=== PATIENT | male | born 1970 | race Caucasian/White ===

== ENCOUNTER 2019-09-14 16:05 | Emergency (ER) | payer SELFPAY ==
[2019-09-14 16:36] VITALS: BP 126/83; O2SAT 98
--- NOTE | 2019-09-14 17:57 | ED.PDOC ---
History of Present Illness - General Chief Complaint: General Stated Complaint: abcess left arm, weakness Time Seen by Provider: 09/14/19 16:22 Source: patient Exam Limitations: no limitations - History of Present Illness Initial Comments: Patient is a 48-year-old male presented emergency room secondary to his issues. The patient has a healing abscess to the left axilla. He has been on antibiotics for the last 7 days and has approached correction, actually 2 prescriptions to get picked up later today to continue treatment for it. He reports they are Augmentin and Bactrim. No extending erythema. He reports it has shrunk significantly. He has been feeling poorly in general as well. He reports feeling tired and fatigued and generally weak. He did just get out of the psychiatric unit multiple days ago. He is back on his routine psychiatric medications. The patient reports that he would like to be tested for all STDs as he has had a history of high risk sexual behavior in the past. I informed him out of the emergency room we do not do that he will need to contact the public health department. He is not having any symptoms of any STDs. Timing/Duration: 1 week Severity: mild Improving Factors: nothing Worsening Factors: nothing Associated Symptoms: malaise Allergies/Adverse Reactions: Allergies NO KNOWN ALLERGY Allergy (Verified 09/14/19 16:36) Home Medications: Ambulatory Orders Amoxicillin & Pot Clavulanate [Augmentin Tab] 875 mg PO BID 09/14/19 Atorvastatin Calcium [Lipitor] 20 mg PO DAILY 09/14/19 Carbamazepine [Tegretol-Xr] 400 mg PO BID 09/14/19 DULoxetine HCL [Cymbalta] 30 mg PO TID 09/14/19 Finasteride [Proscar] 5 mg PO DAILY 09/14/19 Gabapentin [Neurontin] 400 mg PO TID 09/14/19 Tamsulosin HCl [Flomax] 0.4 mg PO DAILY 09/14/19 Ziprasidone HCl [Geodon] 40 mg PO BID 09/14/19 Review of Systems - Review of Systems Constitutional: States: malaise EENTM: States: no symptoms reported Respiratory: States: no symptoms reported Cardiology: States: no symptoms reported Gastrointestinal/Abdominal: States: no symptoms reported Genitourinary: States: no symptoms reported Musculoskeletal: States: no symptoms reported Skin: States: see HPI Neurological: States: no symptoms reported Endocrine: States: no symptoms reported All other Systems: No Change from Baseline Past Medical History (General) - Patient Medical History Hx Seizures: Yes - drug enduced Hx Stroke: Yes Hx Dementia: No Hx Asthma: No Hx of COPD: No Hx Cardiac Disorders: No Hx Congestive Heart Failure: No Hx Pacemaker: No Hx Hypertension: No Hx Thyroid Disease: No Hx Diabetes: No Hx Gastroesophageal Reflux: No Hx Renal Disease: No Hx of HIV: No Hx Hepatitis C: No Surgical History: cholecystectomy - Vaccination History Hx Influenza Vaccination: No Hx Pneumococcal Vaccination: No - Social History Hx Tobacco Use: Yes Hx Alcohol Use: Yes Hx Substance Use: Yes Hx Substance Use Treatment: Yes Family Medical History - Family History Mother Family History: Unknown Living Status: Unknown Physical Exam - Physical Exam General Appearance: Alert, Comfortable, No apparent distress Eye Exam: bilateral normal Ears, Nose, Throat: hearing grossly normal, normal pharynx, other - 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 Neck: non-tender, supple Respiratory: lungs clear, normal breath sounds, no respiratory distress, no accessory muscle use Cardiovascular/Chest: normal peripheral pulses, regular rate, rhythm, no edema Peripheral Pulses: radial,right: 2+, radial,left: 2+ Gastrointestinal/Abdominal: non tender, soft Rectal Exam: deferred Back Exam: no CVA tenderness, no vertebral tenderness Extremity: normal range of motion, non-tender, normal inspection, no pedal ed flora, normal capillary refill Neurologic: absorption operator II-XII nml as tested, alert, normal mood/affect, oriented x 3 Skin Exam: normal color - The patient does have some mild scattered psoriasis. Comments: Vital Signs - 24 hr 09/14/19 16:27 Pulse Rate [ 66 Left Radial] Respiratory 22 Rate Blood Pressure 126/83 [Left Arm] O2 Sat by Pulse 98 Oximetry Laboratory Tests 09/14/19 09/14/19 09/14/19 16:58 16:58 17:20 WBC 7.0 RBC 4.62 L Hgb 14.1 Hct 41.3 L MCV 89.4 MCH 30.5 MCHC 34.2 RDW 13.8 Plt Count 262 MPV 8.5 Absolute Neuts (auto) 4.20 Absolute Lymphs (auto) 2.10 Absolute Monos (auto) 0.60 Absolute Eos (auto) 0.20 Absolute Basos (auto) 0.00 Neutrophils % 59.5 Lymphocytes % 29.5 Monocytes % 8.2 Eosinophils % 2.3 Basophils % 0.5 Sodium 139 Potassium 3.9 Chloride 106 Carbon Dioxide 28 Anion Gap 8.9 L BUN 14 Creatinine 0.76 BUN/Creatinine Ratio 18.4 Random Glucose 92 Serum Osmolality 277.7 Calcium 8.6 Magnesium 2.3 Total Bilirubin 0.4 AST 37 ALT 56 Alkaline Phosphatase 75 Creatine Kinase 100 CK-MB (CK-2) 3.8 CK-MB (CK-2) % Not Reportable Troponin I < 0.02 B-Natriuretic Peptide 16.5 Serum Total Protein 7.6 Albumin 4.2 Globulin 3.4 Albumin/Globulin Ratio 1.2 Urine Color Urine Appearance Urine pH Ur Specific [place] Urine Protein Urine Glucose (UA) Urine Ketones Urine Blood Urine Nitrite Urine Bilirubin Urine Urobilinogen Ur Leukocyte Esterase Urine RBC Urine WBC Ur Epithelial Cells Urine Bacteria Urine Mucus Urine Opiates Screen Negative Urine Barbiturates Negative Ur Phencyclidine Scrn Negative U Amphetamin/Meth Scrn Negative U Benzodiazepines Scrn Negative U Cocaine Metab Screen Negative U Cannabinoids Screen Negative 09/14/19 17:20 WBC RBC Hgb Hct MCV MCH MCHC RDW Plt Count MPV Absolute Neuts (auto) Absolute Lymphs (auto) Absolute Monos (auto) Absolute Eos (auto) Absolute Basos (auto) Neutrophils % Lymphocytes % Monocytes % Eosinophils % Basophils % Sodium Potassium Chloride Carbon Dioxide Anion Gap BUN Creatinine BUN/Creatinine Ratio Random Glucose Serum Osmolality Calcium Magnesium Total Bilirubin AST ALT Alkaline Phosphatase Creatine Kinase CK-MB (CK-2) CK-MB (CK-2) % Troponin I B-Natriuretic Peptide Serum Total Protein Albumin Globulin Albumin/Globulin Ratio Urine Color Yellow Urine Appearance Clear Urine pH 5.5 Ur Specific [place] >= 1.030 Urine Protein Negative Urine Glucose (UA) Negative Urine Ketones Negative Urine Blood Negative Urine Nitrite Negative Urine Bilirubin Negative Urine Urobilinogen 0.2 Ur Leukocyte Esterase Negative Urine RBC 0-1 Urine WBC 0-1 Ur Epithelial Cells 0-1 Urine Bacteria Rare Urine Mucus Trace Urine Opiates Screen Urine Barbiturates Ur Phencyclidine Scrn U Amphetamin/Meth Scrn U Benzodiazepines Scrn U Cocaine Metab Screen U Cannabinoids Screen Progress - Progress Progress: 09/14/19 17:57 The patient is a 48-year-old male presented emergency room secondary to fatigue. The patient has a healing abscess to his left axilla. He is to pickup driver his antibiotics and take them as prescribed. Laboratory work is reassuring. He does have some mild dehydration and needs to pickup driver his fluid intake. The patient needs to follow-up with [facility] department for comprehensive STD testing. He is currently asymptomatic from the standpoint. ER warnings are given. nereida sarkar [id number] - EKG/XRAY/CT CT Ordered: No Departure - Departure Clinical Impression: Dehydration Fatigue Qualifiers: Fatigue type: unspecified Qualified Code(s): R53.83 - Other fatigue Skin abscess Qualifiers: Site of cutaneous abscess: extremity Site of cutaneous abscess of extremity: upper extremity Laterality: left Qualified Code(s): L02.414 - Cutaneous abscess of left upper limb Disposition: Discharge to Home or Self Care Condition: Fair Departure Forms: ED Discharge - Pt. Copy, Patient Portal Self Enrollment Diet: regular diet Activity: increase activity as tolerated Home Medications: Ambulatory Orders Amoxicillin & Pot Clavulanate [Augmentin Tab] 875 mg PO BID 09/14/19 Atorvastatin Calcium [Lipitor] 20 mg PO DAILY 09/14/19 Carbamazepine [Tegretol-Xr] 400 mg PO BID 09/14/19 DULoxetine HCL [Cymbalta] 30 mg PO TID 09/14/19 Finasteride [Proscar] 5 mg PO DAILY 09/14/19 Gabapentin [Neurontin] 400 mg PO TID 09/14/19 Tamsulosin HCl [Flomax] 0.4 mg PO DAILY 09/14/19 Ziprasidone HCl [Geodon] 40 mg PO BID 09/14/19 Additional Instructions: The patient is a 48-year-old male presented emergency room secondary to fatigue. The patient has a healing abscess to his left axilla. He is to pickup driver his antibiotics and take them as prescribed. Laboratory work is reassuring. He does have some mild dehydration and needs to pickup driver his fluid intake. The patient needs to follow-up with [facility] department for comprehensive STD testing. He is currently asymptomatic from the standpoint. ER warnings are given.
== END 2019-09-14 18:06 | disposition home or self-care (01) ==
LOC: ER 16:05
DX: E86.0 Dehydration (principal); L02.414 Cutaneous abscess of left upper limb; R53.83 Other fatigue; F17.200 Nicotine dependence, unspecified, uncomplicated; Z86.73 Personal history of transient ischemic attack (TIA), and cerebral infarction without residual deficits

== ENCOUNTER 2020-01-20 16:12 | Emergency (ER) | payer OTHER ==
--- NOTE | 2020-01-20 16:38 | ED.PDOC ---
History of Present Illness - General Chief Complaint: Skin/Abrasion/Tear Time Seen by Provider: 01/20/20 16:14 Source: patient, RN notes reviewed, Vital Signs reviewed - History of Present Illness Initial Comments: 49 yo M comes in with dog with c/c of pain on arms and chest. States he had an abscess drained yesterday in [place]. Was put on bactrim, but only took one dose. Also hx of parkinsons and HIV exposure. States he has felt weak overall for the past several months. no fever. Allergies/Adverse Reactions: Allergies NO KNOWN ALLERGY Allergy (Verified 01/20/20 17:31) Home Medications: Ambulatory Orders Atorvastatin Calcium [Lipitor] 20 mg PO DAILY 09/14/19 Carbamazepine [Tegretol-Xr] 400 mg PO BID 09/14/19 DULoxetine HCL [Cymbalta] 30 mg PO TID 09/14/19 Finasteride [Proscar] 5 mg PO DAILY 09/14/19 Gabapentin [Neurontin] 400 mg PO TID 09/14/19 Tamsulosin HCl [Flomax] 0.4 mg PO DAILY 09/14/19 Ziprasidone HCl [Geodon] 40 mg PO BID 09/14/19 Clindamycin HCl [Cleocin] 300 mg PO Q6H 10 Days #40 capsule 01/20/20 Review of Systems - Review of Systems Constitutional: States: malaise. Denies: chills, fever EENTM: Denies: blurred vision, throat pain, throat swelling Respiratory: Denies: cough, short of breath Cardiology: Denies: chest pain, palpitations Gastrointestinal/Abdominal: Denies: abdominal pain, diarrhea, nausea, vomiting Genitourinary: Denies: discharge, frequency, hematuria Musculoskeletal: Denies: back pain, joint pain, joint swelling, muscle pain Skin: States: see HPI, rash Neurological: States: pre-existing deficit - bells palsy chronic . Denies: headache, numbness, paresthesia, tingling, tremors, weakness Endocrine: Denies: increased urine, unexplained weight gain, unexplained weight loss Hematologic/Lymphatic: Denies: blood clots, easy bleeding, easy bruising Past Medical History (General) - Patient Medical History Hx Seizures: Yes - drug enduced Hx Stroke: Yes Hx Dementia: No Hx Asthma: No Hx of COPD: No Hx Cardiac Disorders: No Hx Congestive Heart Failure: No Hx Pacemaker: No Hx Hypertension: No Hx Thyroid Disease: No Hx Diabetes: No Hx Gastroesophageal Reflux: No Hx Renal Disease: No Hx of HIV: No Hx Hepatitis C: No - Vaccination History Hx Influenza Vaccination: No Hx Pneumococcal Vaccination: No - Social History Hx Tobacco Use: Yes Hx Alcohol Use: Yes Hx Substance Use: Yes Hx Substance Use Treatment: Yes Family Medical History - Family History Mother Family History: Unknown Living Status: Unknown Physical Exam - Physical Exam General Appearance: Alert, Comfortable, No apparent distress, Well Developed, Well Groomed, Well Hydrated, Well Nourished Eyes, Ears, Nose, Throat Exam: PERRL/EOMI, normal ENT inspection, TMs normal Neck: non-tender, full range of motion, supple, normal inspection Cardiovascular/Chest: normal peripheral pulses, regular rate, rhythm, no edema, no gallop, no JVD, no murmur Respiratory: chest non-tender, lungs clear, normal breath sounds, no respiratory distress, no accessory muscle use Gastrointestinal/Abdominal: normal bowel sounds, non tender, soft, no organomegaly, no pulsatile mass Back Exam: normal inspection, no CVA tenderness Extremity: normal range of motion, non-tender, normal inspection, no pedal edema, no calf tenderness, normal capillary refill Neurologic: no motor/sensory deficits, alert, normal mood/affect, oriented x 3 Skin Exam: warm/dry, other - 5 cm area of induration, erythema on left chest, no fluctuance or anything drainable noted at this time. Also small indurated, erythematous area on right forearm and left forearm aprx 1 cm in diameter. Progress - Progress Progress: 01/20/20 18:21 due to only receiving one day of antibiotic I do not feel this is failed outpatient therapy at this time. Will give one time does of vancomycin. Will get blood cultures. no chest pain or shortness of breath. no systemic signs currently. Plan on discharging on clindamcyin. The data reviewed when caring for this patient included: nurse notes, prior records, etc. The history and assessments from nurses notes were reviewed and considered, and the patient's home medication list was also reviewed and considered. My assessment and the results of testing completed here in the ED were discussed with the patient/family. All questions were answered, and they express understanding of my assessment and the plan. They have been instructed to return if their symptoms worsen, and have been asked to follow up with their primary care physician to recheck today's presenting complaint. Strict return precautions given. I have reviewed medication, benefits, alternatives and side effects. Patient decided to proceed with medication. Gayle Khan DO #[id number] Departure - Departure Clinical Impression: Abscess Cellulitis Qualifiers: Site of cellulitis: trunk Site of cellulitis of trunk: chest wall Qualified Code(s): L03.313 - Cellulitis of chest wall Disposition: Discharge to Home or Self Care Departure Forms: ED Discharge - Pt. Copy, Patient Portal Self Enrollment Instructions: DI for Abrasion, Skin Abscess, Cellulitis (Skin Infection), Adult (DC) Prescriptions: Clindamycin HCl [Cleocin] 300 mg PO Q6H 10 Days #40 capsule Home Medications: Ambulatory Orders Atorvastatin Calcium [Lipitor] 20 mg PO DAILY 09/14/19 Carbamazepine [Tegretol-Xr] 400 mg PO BID 09/14/19 DULoxetine HCL [Cymbalta] 30 mg PO TID 09/14/19 Finasteride [Proscar] 5 mg PO DAILY 09/14/19 Gabapentin [Neurontin] 400 mg PO TID 09/14/19 Tamsulosin HCl [Flomax] 0.4 mg PO DAILY 09/14/19 Ziprasidone HCl [Geodon] 40 mg PO BID 09/14/19 Clindamycin HCl [Cleocin] 300 mg PO Q6H 10 Days #40 capsule 01/20/20
[2020-01-20] MEDS ORDERED: VANCOMYCIN HCL INJ 1,500 MG in SODIUM CHLORIDE 0.9% 500ML 500 ML IVPB ONE (17:13)
[2020-01-20] MEDS ORDERED: VANCOMYCIN HCL INJ 500 MG VIAL ONE (18:29)
[2020-01-20 19:17] VITALS: BP 130/83; TEMP 97.4; O2SAT 100
== END 2020-01-20 19:23 | disposition home or self-care (01) ==
LOC: ER 16:12
DX: L03.313 Cellulitis of chest wall (principal); L02.91 Cutaneous abscess, unspecified; G51.0 Bell's palsy; G20 Parkinson's disease; Z79.899 Other long term (current) drug therapy; Z86.73 Personal history of transient ischemic attack (TIA), and cerebral infarction without residual deficits; Z87.891 Personal history of nicotine dependence
CPT/HCPCS: 36415; 80053; 85025; 86140; 87040; J3370; J7040

== ENCOUNTER 2020-03-04 01:07 | Emergency (ER) | payer OTHER ==
[2020-03-04] MEDS ORDERED: SODIUM CHLORIDE 0.9% (FLUSH) 10 ML SYG IV PRN (01:29)
--- NOTE | 2020-03-04 02:17 | ED.PDOC ---
History of Present Illness - General Chief Complaint: Behavioral / Psych Stated Complaint: quit taking medication, "Freaked Out" Time Seen by Provider: 03/04/20 01:28 Source: patient, RN notes reviewed, Vital Signs reviewed Exam Limitations: no limitations - History of Present Illness Initial Comments: Patient is a 49-year-old white male who presents due to anxiety and his para noia. Patient has not been taking his psych meds for the last 3 days. Patient feels that he is being watched and stalked by people in this town who want to run them out of town. He states this is because he is [place]. Patient denies hearing voices. Patient denies homicidal or suicidal thoughts. Patient is extremely depressed and anxious and is worried that he might try to do something stupid and hurt himself. Timing/Duration: getting worse, other - 3 days Severity: severe Associated Symptoms: anxiety, impaired concentration Allergies/Adverse Reactions: Allergies Tramadol Allergy (Verified 03/04/20 02:02) Home Medications: Ambulatory Orders Carbamazepine [Tegretol-Xr] 400 mg PO BID 09/14/19 DULoxetine HCL [Cymbalta] 30 mg PO TID 09/14/19 Latuda PO DAILY 03/04/20 Review of Systems - Review of Systems Constitutional: States: no symptoms reported, see HPI. Denies: chills, fever, malaise, weakness EENTM: States: no symptoms reported. Denies: eye pain, blurred vision, double vision Respiratory: States: no symptoms reported. Denies: cough, short of breath, stridor, wheezing Cardiology: States: no symptoms reported. Denies: chest pain, palpitations, syncope Gastrointestinal/Abdominal: States: no symptoms reported. Denies: abdominal pain, nausea, vomiting Genitourinary: States: no symptoms reported. Denies: dysuria, frequency Musculoskeletal: States: no symptoms reported. Denies: back pain, joint pain, neck pain Skin: States: no symptoms reported. Denies: change in color, rash Neurological: States: anxiety, depressed, emotional problems. Denies: headache, numbness, paresthesia, tingling, tremors, weakness Endocrine: States: no symptoms reported. Denies: increased hunger, increased thirst, increased urine Hematologic/Lymphatic: States: no symptoms reported. Denies: blood clots, easy bleeding All other Systems: Reviewed and Negative Past Medical History (General) - Patient Medical History Hx Seizures: No Hx Stroke: No Hx Dementia: No Hx Asthma: No Hx of COPD: No Hx Cardiac Disorders: No Hx Congestive Heart Failure: No Hx Pacemaker: No Hx Hypertension: No Hx Thyroid Disease: No Hx Diabetes: No Hx Gastroesophageal Reflux: No Hx Renal Disease: No Hx Cancer: No Hx of HIV: No Hx Hepatitis C: No Hx MRSA: Yes Hx Other PMH: Yes - depression and anxiety MRSA Source:: Skin Surgical History: cholecystectomy - Vaccination History Hx Tetanus, Diphtheria Vaccination: Yes Hx Influenza Vaccination: No Hx Pneumococcal Vaccination: No - Social History Hx Tobacco Use: No Hx Chewing Tobacco Use: No Hx Alcohol Use: No Hx Substance Use: No Hx Substance Use Treatment: Yes Hx Depression: No Feels Threatened In Home Enviroment: No Feels Threatened In a Relationship: No Hx Physical Abuse: No Hx Emotional Abuse: No Hx Suspected Abuse: No - Female History Patient is a Female of Child Bearing Age (10 -59 yrs old): No - Triage Comment ED Triage Comment: The patient walked from the ambulance to ER bed 3 while carring his service dog. He was alert and oriented times 4 and did appear anxious. He stated that he had not been taking all of his medications for the past 3 days and wanted to be taken to [facility] for further treatment. He denied being suicidal at the time of assessment but stated that he felt that he was getting close to that point. He also had noted pain to his right leg and had noted redness around an old scar that had noted pain upon palpation. He had no other noted compalints at the time of contact. Family Medical History - Family History Mother Family History: Unknown Living Status: Unknown Physical Exam - Physical Exam General Appearance: Agitated, Alert, Anxious, Obvious distress, Unkempt, Well Developed, Well Hydrated, Well Nourished Eyes, Ears, Nose, Throat Exam: PERRL/EOMI, normal ENT inspection, pharynx normal Neck: non-tender, full range of motion, supple Respiratory: chest non-tender, lungs clear, normal breath sounds, no respiratory distress, no accessory muscle use Cardiovascular/Chest: normal peripheral pulses, no edema, no gallop, no JVD, no murmur, tachycardia Peripheral Pulses: radial,right: 2+, radial,left: 2+ Gastrointestinal/Abdominal: normal bowel sounds, non tender, soft Extremities Exam: normal range of motion, tenderness - Left lower lateral extremity with redness consistent with cellulitis. Neurological: alert, field associate II-XII nml as tested, oriented x 3, anxious, depressed affect Appearance: no memory impairment, disheveled - Pt smells of cigarrette smoke. Pt state he doesn't smoke it is from his roommate who smokes. Behavior/Eye Contact/Speech: cooperative, normal speech, avoids eye contact Thoughts/Hallucinations: no apparent hallucination, paranoid, persecution Skin Exam: normal color, warm/dry Progress - Progress Progress: Differential diagnosis: Suicidal ideation, depression, methamphetamine abuse, acute psychosis among others. 03/04/20 03:42 Patient's labs are relatively unremarkable except for his urine drug screen showing methamphetamine usage. We are awaiting [facility] to evaluate the patient for placement and I have discussed this plan with the patient he voices understanding and agreement with plan of care at this point time 03/04/20 04:15 Patient has spoken with [facility] and has outpatient counseling appointment scheduled for next week. Patient contracts for safety. Plan discharge home with follow- up with [facility]. I discussed this plan of care with the patient he voices understanding and agreement. Attila Jenkins M.D. #[id number] - Results/Orders Results/Orders: EKG performed on 04 March 2020 at 0146 hrs.: Normal sinus rhythm at 95 bpm, normal axis deviation, no ST or T wave changes concerning for ischemia, normal EKG. No comparison EKG available at this time. 03/04/20 01:29 Sodium Chloride 0.9% (Flush) [Saline Flush Syringe] 10 ml IV PRN PRN 03/04/20 01:30 EKG STAT Laboratory Results - last 24 hr 03/04/20 03/04/20 03/04/20 01:45 01:45 01:45 WBC 9.2 RBC 4.45 L Hgb 13.3 L Hct 38.2 L MCV 85.7 MCH 29.9 MCHC 34.9 RDW 13.4 Plt Count 309 MPV 7.4 Absolute Neuts (auto) 6.50 Absolute Lymphs (auto) 1.70 Absolute Monos (auto) 0.80 Absolute Eos (auto) 0.10 Absolute Basos (auto) 0.00 Neutrophils % 70.9 Lymphocytes % 18.7 L Monocytes % 9.2 H Eosinophils % 0.8 L Basophils % 0.4 PT 10.0 INR 1.01 PTT (SP) 25.0 Sodium 139 Potassium 3.6 Chloride 102 Carbon Dioxide 27 Anion Gap 13.6 BUN 10 Creatinine 0.93 BUN/Creatinine Ratio 10.8 Random Glucose 101 Serum Osmolality 276.7 Calcium 8.7 Total Bilirubin 0.5 AST 19 ALT 23 Alkaline Phosphatase 81 Creatine Kinase 122 CK-MB (CK-2) 3.9 CK-MB (CK-2) % Not Reportable Troponin I < 0.02 Serum Total Protein 8.0 Albumin 4.1 Globulin 3.9 H Albumin/Globulin Ratio 1.1 Urine Color Urine Appearance Urine pH Ur Specific [place] Urine Protein Urine Glucose (UA) Urine Ketones Urine Blood Urine Nitrite Urine Bilirubin Urine Urobilinogen Ur Leukocyte Esterase Urine RBC Urine WBC Ur Epithelial Cells Urine Bacteria Salicylates < 4.0 Urine Opiates Screen Acetaminophen < 10.0 L Urine Barbiturates Ur Phencyclidine Scrn U Amphetamin/Meth Scrn U Benzodiazepines Scrn U Cocaine Metab Screen U Cannabinoids Screen Ethyl Alcohol 03/04/20 03/04/20 03/04/20 01:45 01:50 01:50 WBC RBC Hgb Hct MCV MCH MCHC RDW Plt Count MPV Absolute Neuts (auto) Absolute Lymphs (auto) Absolute Monos (auto) Absolute Eos (auto) Absolute Basos (auto) Neutrophils % Lymphocytes % Monocytes % Eosinophils % Basophils % PT INR PTT (SP) Sodium Potassium Chloride Carbon Dioxide Anion Gap BUN Creatinine BUN/Creatinine Ratio Random Glucose Serum Osmolality Calcium Total Bilirubin AST ALT Alkaline Phosphatase Creatine Kinase CK-MB (CK-2) CK-MB (CK-2) % Troponin I Serum Total Protein Albumin Globulin Albumin/Globulin Ratio Urine Color Yellow Urine Appearance Clear Urine pH 6.0 Ur Specific [place] 1.025 Urine Protein Negative Urine Glucose (UA) Negative Urine Ketones Negative Urine Blood Negative Urine Nitrite Negative Urine Bilirubin Negative Urine Urobilinogen 0.2 Ur Leukocyte Esterase Negative Urine RBC 0 Urine WBC 0-1 Ur Epithelial Cells 0 Urine Bacteria 0 Salicylates Urine Opiates Screen Negative Acetaminophen Urine Barbiturates Negative Ur Phencyclidine Scrn Negative U Amphetamin/Meth Scrn Positive H U Benzodiazepines Scrn Negative U Cocaine Metab Screen Negative U Cannabinoids Screen Negative Ethyl Alcohol < 5.10 Vital Signs 03/04/20 03/04/20 03/04/20 01:19 02:07 03:00 Temperature 97.7 F Pulse Rate [ 118 H 92 H 92 H Pulse Ox] Respiratory 20 18 14 Rate Blood Pressure 135/89 132/84 129/84 [Left Arm] O2 Sat by Pulse 99 96 97 Oximetry 03/04/20 04:00 Temperature Pulse Rate [ 82 Pulse Ox] Respiratory 14 Rate Blood Pressure 142/94 [Left Arm] O2 Sat by Pulse 95 Oximetry - EKG/XRAY/CT CT Ordered: No CT Interpretation Call Back: No Departure - Departure Clinical Impression: Methamphetamine abuse Depression Qualifiers: Depression Type: unspecified Qualified Code(s): F32.9 - Major depressive disorder, single episode, unspecified Time of Disposition: 04:17 Disposition: Discharge to Home or Self Care Condition: Good Departure Forms: ED Discharge - Pt. Copy, Patient Portal Self Enrollment Instructions: DI for Psychosis, Depression, Adult (DC) Diet: resume usual diet Activity: increase activity as tolerated Home Medications: Ambulatory Orders Carbamazepine [Tegretol-Xr] 400 mg PO BID 09/14/19 DULoxetine HCL [Cymbalta] 30 mg PO TID 09/14/19 Latuda PO DAILY 03/04/20
[2020-03-04] MEDS ORDERED: CLINDAMYCIN INJ (VIAL) 600 MG in SODIUM CHLORIDE 0.9% 50ML 50 ML IVPB ONE (02:22)
[2020-03-04 04:05] VITALS: O2SAT 95
[2020-03-04 04:22] VITALS: BP 136/92; TEMP 97.5
== END 2020-03-04 04:21 | disposition home or self-care (01) ==
LOC: ER 01:07
DX: F32.9 Major depressive disorder, single episode, unspecified (principal); F15.10 Other stimulant abuse, uncomplicated; L03.116 Cellulitis of left lower limb; F41.9 Anxiety disorder, unspecified; Z86.14 Personal history of Methicillin resistant Staphylococcus aureus infection; Z79.899 Other long term (current) drug therapy; Z88.5 Allergy status to narcotic agent
CPT/HCPCS: 80053; 80307; 80320; 80329; 81001; 82550; 82553; 84484; 85025; 85610; 85730; 93005; A4216; J3490

== ENCOUNTER 2020-03-04 07:38 | Emergency (ER) | payer OTHER ==
[2020-03-04 07:59] VITALS: BP 142/86; TEMP 98.8; O2SAT 95
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
== END 2020-03-04 08:33 | disposition home or self-care (01) ==
LOC: ER 07:38
DX: R46.89 Other symptoms and signs involving appearance and behavior (principal); F15.10 Other stimulant abuse, uncomplicated; F20.0 Paranoid schizophrenia; Z79.899 Other long term (current) drug therapy; Z88.5 Allergy status to narcotic agent

== ENCOUNTER 2020-04-30 16:56 | Emergency (ER) | payer OTHER ==
--- NOTE | 2020-04-30 17:22 | ED.PDOC ---
History of Present Illness - General Chief Complaint: GI Problem Stated Complaint: right side "liver" pain Time Seen by Provider: 04/30/20 17:15 Source: patient, RN notes reviewed, Vital Signs reviewed, old records Exam Limitations: no limitations - History of Present Illness Initial Comments: Pt reports that he wa recently exposed to Hepatitis B. States for the last 3 weeks has had achy RUQ pain and nausea. Denies vomiting, diarrhea, fever, chills or blood in stool. States he tested + for COVID 6 weeks ago and symptoms have resolved. Was seen in clinic 5 days ago and had hepatitis panel performed that was negative, but he is not sure if that is accurate. Allergies/Adverse Reactions: Allergies Tramadol Allergy (Verified 04/30/20 17:20) Home Medications: Ambulatory Orders Carbamazepine [Tegretol-Xr] 400 mg PO BID 09/14/19 DULoxetine HCL [Cymbalta] 30 mg PO TID 09/14/19 Latuda PO DAILY 03/04/20 Review of Systems - Review of Systems Constitutional: Denies: chills, fever, weakness EENTM: Denies: blurred vision, nose congestion, throat pain Respiratory: Denies: cough, short of breath Cardiology: Denies: chest pain, palpitations, syncope Gastrointestinal/Abdominal: States: nausea. Denies: diarrhea, vomiting Musculoskeletal: Denies: back pain, neck pain Skin: Denies: rash Endocrine: States: no symptoms reported All other Systems: Reviewed and Negative Past Medical History (General) - Patient Medical History Hx Seizures: No Hx Stroke: No Hx Dementia: No Hx Asthma: No Hx of COPD: No Hx Cardiac Disorders: No Hx Congestive Heart Failure: No Hx Pacemaker: No Hx Hypertension: No Hx Thyroid Disease: No Hx Diabetes: No Hx Gastroesophageal Reflux: No Hx Renal Disease: No Hx Cancer: No Hx of HIV: No Hx Hepatitis C: No Hx MRSA: Yes MRSA Source:: Skin - Vaccination History Hx Tetanus, Diphtheria Vaccination: Yes Hx Influenza Vaccination: No Hx Pneumococcal Vaccination: No - Social History Hx Tobacco Use: No Hx Chewing Tobacco Use: No Hx Alcohol Use: No Hx Substance Use: No Hx Substance Use Treatment: Yes Hx Depression: No Hx Physical Abuse: No Hx Emotional Abuse: No Hx Suspected Abuse: No Family Medical History - Family History Mother Family History: Unknown Living Status: Unknown Physical Exam - Physical Exam General Appearance: Alert, Comfortable, No apparent distress Eye Exam: bilateral other - no scleral icterus Ears, Nose, Throat: normal pharynx Neck: non-tender, full range of motion, supple Respiratory: chest non-tender, lungs clear, normal breath sounds, no respiratory distress Cardiovascular/Chest: regular rate, rhythm, no edema, no murmur Gastrointestinal/Abdominal: soft, other - Mild TTP RUQ. Negative James's sign. No guarding or rigidity Back Exam: no CVA tenderness, no vertebral tenderness Extremity: non-tender, normal inspection, no pedal edema Neurologic: no motor/sensory deficits, alert, normal mood/affect Skin Exam: normal color, other - no jaundice Progress - Progress Progress: 04/30/20 17:24 Pt presents with 3 week h/o achy RUQ pain and nausea. No fever or vomiting. No sign of acute abdomen on exam. Will get labs. I have d/w pt that he will need outpatient abdominal US with PCP for continued evaluation. 04/30/20 18:41 I have d/w pt results. He feels comfortable going home and will f/u with PCP for final results and outpatient US RUQ for further evaluation. SRP given. - Results/Orders Results/Orders: 04/30/20 17:28 HEPATITIS B SURFACE ANTIBODY Stat HEPATITIS C ANTIBODY PANEL Stat Laboratory Results - last 24 hr 04/30/20 04/30/20 04/30/20 17:27 17:27 17:27 WBC 6.9 RBC 4.63 L Hgb 13.4 L Hct 39.5 L MCV 85.2 MCH 29.0 MCHC 34.0 RDW 13.6 Plt Count 266 MPV 7.3 L Absolute Neuts (auto) 4.60 Absolute Lymphs (auto) 1.40 Absolute Monos (auto) 0.60 Absolute Eos (auto) 0.10 Absolute Basos (auto) 0.10 Neutrophils % 67.7 Lymphocytes % 20.5 Monocytes % 9.3 H Eosinophils % 1.7 Basophils % 0.8 PT 10.6 INR 1.07 PTT (SP) 24.4 Sodium 138 Potassium 3.6 Chloride 104 Carbon Dioxide 24 Anion Gap 13.6 BUN 14 Creatinine 0.92 BUN/Creatinine Ratio 15.2 Random Glucose 102 Serum Osmolality 276.3 Calcium 9.1 Total Bilirubin 1.0 AST 28 ALT 32 Alkaline Phosphatase 68 Serum Total Protein 7.6 Albumin 4.2 Globulin 3.4 Albumin/Globulin Ratio 1.2 Lipase 36 Urine Color Urine Appearance Urine pH Ur Specific [place] Urine Protein Urine Glucose (UA) Urine Ketones Urine Blood Urine Nitrite Urine Bilirubin Urine Urobilinogen Ur Leukocyte Esterase Urine RBC Urine WBC Ur Epithelial Cells Urine Bacteria Urine Mucus 04/30/20 18:15 WBC RBC Hgb Hct MCV MCH MCHC RDW Plt Count MPV Absolute Neuts (auto) Absolute Lymphs (auto) Absolute Monos (auto) Absolute Eos (auto) Absolute Basos (auto) Neutrophils % Lymphocytes % Monocytes % Eosinophils % Basophils % PT INR PTT (SP) Sodium Potassium Chloride Carbon Dioxide Anion Gap BUN Creatinine BUN/Creatinine Ratio Random Glucose Serum Osmolality Calcium Total Bilirubin AST ALT Alkaline Phosphatase Serum Total Protein Albumin Globulin Albumin/Globulin Ratio Lipase Urine Color Yellow Urine Appearance Clear Urine pH 6.0 Ur Specific [place] >= 1.030 Urine Protein Negative Urine Glucose (UA) Negative Urine Ketones 40 H Urine Blood Negative Urine Nitrite Negative Urine Bilirubin Small H Urine Urobilinogen 1.0 Ur Leukocyte Esterase Negative Urine RBC 0 Urine WBC 1-3 Ur Epithelial Cells 1-3 Urine Bacteria 0 Urine Mucus Moderate Departure - Departure Clinical Impression: RUQ abdominal pain Time of Disposition: 18:35 Disposition: Discharge to Home or Self Care Condition: Good Departure Forms: ED Discharge - Pt. Copy, Patient Portal Self Enrollment Instructions: Severe Abdominal Pain, Adult (DC) Diet: resume usual diet Activity: increase activity as tolerated Referrals: Yvan Qureshi MD [Primary Care Provider] - 1-2 Days Home Medications: Ambulatory Orders Carbamazepine [Tegretol-Xr] 400 mg PO BID 09/14/19 DULoxetine HCL [Cymbalta] 30 mg PO TID 09/14/19 Latuda PO DAILY 03/04/20
[2020-04-30 18:52] VITALS: BP 148/82; TEMP 98.5; O2SAT 96
== END 2020-04-30 18:50 | disposition home or self-care (01) ==
LOC: ER 16:56
DX: R10.11 Right upper quadrant pain (principal); R11.0 Nausea; Z86.16 Personal history of COVID-19; Z20.5 Contact with and (suspected) exposure to viral hepatitis; Z88.5 Allergy status to narcotic agent

== ENCOUNTER 2020-05-04 15:42 | Emergency (ER) | payer OTHER ==
[2020-05-04] MEDS ORDERED: LORazepam 0.5 MG TAB PO ONE (16:09)
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
[2020-05-04 16:38] VITALS: BP 119/77; TEMP 97.5; O2SAT 99
== END 2020-05-04 16:48 | disposition home or self-care (01) ==
LOC: ER 15:42
DX: F41.0 Panic disorder [episodic paroxysmal anxiety] (principal); Z63.4 Disappearance and death of family member; Z88.5 Allergy status to narcotic agent; Z79.899 Other long term (current) drug therapy

== ENCOUNTER 2020-05-04 17:09 | Emergency (ER) | payer OTHER ==
--- NOTE | 2020-05-04 17:56 | ED.PDOC ---
History of Present Illness - General Chief Complaint: Behavioral / Psych Stated Complaint: Patient states hes is suicidal Time Seen by Provider: 05/04/20 17:54 Source: patient Exam Limitations: no limitations - History of Present Illness Initial Comments: The patient was literally seen in the emergency room 10 minutes prior, when he came back feeling that he was suicidal and feeling somehow threatened. The patient is alert and oriented. He is somewhat agitated. He has spent the first 45 minutes back in the room on his cellular phone. The patient does report doing methamphetamine. Timing/Duration: 1/2 hour - Or less Improving Factors: nothing Worsening Factors: nothing Allergies/Adverse Reactions: Allergies Tramadol Allergy (Verified 04/30/20 17:20) Home Medications: Ambulatory Orders Carbamazepine [Tegretol-Xr] 400 mg PO BID 09/14/19 DULoxetine HCL [Cymbalta] 30 mg PO TID 09/14/19 Latuda PO DAILY 03/04/20 Review of Systems - Review of Systems Constitutional: States: no symptoms reported EENTM: States: no symptoms reported Respiratory: States: no symptoms reported Cardiology: States: no symptoms reported Gastrointestinal/Abdominal: States: no symptoms reported Genitourinary: States: no symptoms reported Musculoskeletal: States: no symptoms reported Skin: States: no symptoms reported Neurological: States: anxiety, depressed, emotional problems Endocrine: States: no symptoms reported Hematologic/Lymphatic: States: no symptoms reported All other Systems: No Change from Baseline Past Medical History (General) - Patient Medical History Hx Seizures: No Hx Stroke: No Hx Dementia: No Hx Asthma: No Hx of COPD: No Hx Cardiac Disorders: No Hx Congestive Heart Failure: No Hx Pacemaker: No Hx Hypertension: No Hx Thyroid Disease: No Hx Diabetes: No Hx Gastroesophageal Reflux: No Hx Renal Disease: No Hx Cancer: No Hx of HIV: No Hx Hepatitis C: No Hx MRSA: Yes MRSA Source:: Skin - Vaccination History Hx Tetanus, Diphtheria Vaccination: Yes Hx Influenza Vaccination: No Hx Pneumococcal Vaccination: No - Social History Hx Tobacco Use: No Hx Chewing Tobacco Use: No Hx Alcohol Use: No Hx Substance Use: No Hx Substance Use Treatment: Yes Hx Depression: No Hx Physical Abuse: No Hx Emotional Abuse: No Hx Suspected Abuse: No Family Medical History - Family History Mother Family History: Unknown Living Status: Unknown Physical Exam - Physical Exam General Appearance: Alert, Other - Mildly agitated Eye Exam: bilateral normal Ears, Nose, Throat: hearing grossly normal Neck: non-tender, supple Respiratory: lungs clear, normal breath sounds, no respiratory distress, no accessory muscle use Cardiovascular/Chest: normal peripheral pulses, regular rate, rhythm, no edema Peripheral Pulses: radial,right: 2+, radial,left: 2+ Gastrointestinal/Abdominal: non tender, soft Rectal Exam: deferred Extremity: normal range of motion, no pedal edema, normal capillary refill Neurologic: data engineer II-XII nml as tested, alert, oriented x 3, other - Agitated Skin Exam: normal color Progress - Progress Progress: 05/04/20 17:56 The patient presents for the second time within the last hour secondary to male reportedly feeling suicidal. His pump house technician has been contacted and they are trying to get him into the crisis unit in [place]. The patient did admit to using methamphetamine recently. Vital signs are stable. No evidence of physical trauma currently. Departure - Departure Clinical Impression: Suicidal ideation Disposition: Transfer to Hospital Departure Forms: ED Discharge - Pt. Copy, Patient Portal Self Enrollment Instructions: DI for Psychosis Referrals: Yvan Qureshi MD [Primary Care Provider] - 1-2 Weeks Home Medications: Ambulatory Orders Carbamazepine [Tegretol-Xr] 400 mg PO BID 09/14/19 DULoxetine HCL [Cymbalta] 30 mg PO TID 09/14/19 Latuda PO DAILY 03/04/20 Transfer to Outside Facility - Transfer Information Decision to Transfer Date: 05/04/20 Decision to Transfer Time: 18:48 Reason for Transfer: specialized care not available Accepting Facility: [facility]
[2020-05-04 19:46] VITALS: BP 131/83; TEMP 99; O2SAT 100
== END 2020-05-04 19:58 | disposition short-term general hospital (02) ==
LOC: ER 17:09
DX: R45.851 Suicidal ideations (principal); F15.90 Other stimulant use, unspecified, uncomplicated; Z88.8 Allergy status to other drugs, medicaments and biological substances